=== PATIENT | male | born 1935 | race Caucasian/White ===

== ENCOUNTER 2017-01-06 18:26 | Emergency (ER) | payer MEDICARE, OTHER ==
[~2017-01-06] VITALS: Ht 185.4 cm; Wt 82.6 kg
[~2017-01-06 18:26] MED LIST: ASPI81 PO; ENOX40P SQ; HYDR10TA16 PO; TAB-TAB PO
[2017-01-06 18:30] VITALS: BP 136/71; PULSE 62; RESP 16; TEMP 97.7; O2SAT 96
[2017-01-06] MEDS ORDERED: ASPI1TAB69 PO (18:40)
[2017-01-06] MEDS ORDERED: LEVO25TA4 PO (18:40)
--- NOTE | 2017-01-06 19:23 | PD ---
HPI Chief Complaint: Nosebleed Time Seen by Provider: 19:12 Travel History International Travel<30 days: No Contact w/Intl Traveler<30days: No Traveled to known affect area: No History of Present Illness HPI The patient's 81 years old. He arrives with a history of epistaxis that started about 4 hours and a half prior to ER evaluation. It was from the right nostril only. After about one hour of intermittent pressure he placed paper towel in the right nostril which stopped the bleeding. He noticed initially minimal blood in the posterior oropharynx which resolved. In the ER he states the bleeding has stopped completely. He takes a baby aspirin daily. He notes an occasional similar prior episode. He has follow-up with an oncologist for a history of tongue cancer and underwent a nasopharyngoscopy procedure about 2 months prior. He notes a few drops of blood were observed such that the total blood loss was "infinitesimal" in his words. He has no other complaint. 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) Diminished Hearing: No Thyroid Disease: Yes Past Surgical History Thoracic Surgery: Yes (ATERIOVENOUS MALFORMATION REPAIR 1995) Tonsillectomy: Yes Other Surgery: Yes (avm repair 1995) Social History Alcohol Use: No Tobacco Use: No Substance Use: No Allergies-Medications (Allergen,Severity, Reaction): Coded Allergies: No Known Allergies (Verified , 01/06/17) Reported Meds & Prescriptions Reported Meds & Active Scripts Active Reported Levothyroxine (Levothyroxine Sodium) 25 Mcg Tab Unknown Dose PO DAILY Aspirin 81 Mg Tabdr 81 Mg PO DAILY Review of Systems Except as stated in HPI: all other systems reviewed are Neg General / Constitutional: No: Fever HENT: Positive: Nosebleed Physical Exam Narrative GENERAL: Pleasant 81-year-old male no acute distress SKIN: Warm and dry. HEAD: Atraumatic. Normocephalic. EYES: Pupils equal and round. No scleral icterus. No injection or drainage. ENT: No nasal bleeding or discharge. Mucous membranes pink and moist. There is no bleeding right or left naris. I can see no hyperemic anterior septal arterial plexus on either side. NECK: Trachea midline. No JVD. CARDIOVASCULAR: Regular rate and rhythm. No murmur appreciated. RESPIRATORY: No accessory muscle use. Clear to auscultation. Breath sounds equal bilaterally. GASTROINTESTINAL: Abdomen soft, non-tender, nondistended. Hepatic and splenic margins not palpable. MUSCULOSKELETAL: No obvious deformities. No clubbing. No cyanosis. No edema. NEUROLOGICAL: Awake and alert. No obvious cranial nerve deficits. Motor grossly within normal limits. Normal speech. PSYCHIATRIC: Appropriate mood and affect; insight and judgment normal. Data Data Last Documented VS Vital Signs Date Time Temp Pulse Resp B/P Pulse Ox O2 Delivery O2 Flow Rate FiO2 01/06/17 18:30 97.7 62 16 136/71 96 Vital signs reviewed MDM Medical Decision Making Medical Screen Exam Complete: Yes Emergency Medical Condition: Yes Medical Record Reviewed: Yes Differential Diagnosis Anterior epistaxis, posterior epistaxis, anemia, malignancy Narrative Course The bleeding has resolved and it according to the patient sounds as if it was quite minimal blood loss overall. He has follow-up with physician for his history of tongue cancer and underwent evaluation evidently including a nasopharyngoscopy about 2 months ago. I discussed with patient the possibility that given the atypical nature of his presentation evaluation for malignancy is advised. The patient verbalized understanding at 7:15 PM approximately. Return precautions were discussed as were at home management techniques. Diagnosis Primary Impression: Right-sided epistaxis Referrals: DR CHUA 2 days Additional Instructions: You have a choice when it comes to health care, and we are glad that you chose [email or web address]. Hopefully, we have met your expectations on today's visit. You are welcome to return to [email or web address] at any time, as we are committed to meeting the health care needs of our community. Med/Other Pt SpecificInfo: No Change to Meds Disposition: 01 DISCHARGE HOME Condition: Ernesto Barney MD Jan 06, 2017 19:23
[2017-01-06 19:32] VITALS: BP 123/63; PULSE 66; RESP 18; TEMP 97.4; O2SAT 95
== END 2017-01-06 19:40 | disposition home or self-care (01) ==
LOC: PHED 18:26
DX: R04.0 Epistaxis (principal); I69.351 Hemiplegia and hemiparesis following cerebral infarction affecting right dominant side; Z79.82 Long term (current) use of aspirin
CPT/HCPCS: 99283

== ENCOUNTER 2017-09-06 09:42 | Emergency (ER) | payer MEDICARE, OTHER ==
[~2017-09-06] VITALS: Ht 182.9 cm; Wt 81.4 kg
[~2017-09-06 09:42] MED LIST changes: +ASPI1TAB69 PO; -ASPI81 PO; -ENOX40P SQ; -HYDR10TA16 PO; +LEVO25TA4 PO; -TAB-TAB PO
[2017-09-06 09:54] VITALS: BP 112/57; PULSE 82; RESP 18; TEMP 98.4; O2SAT 96
[2017-09-06] MEDS ORDERED: ASPI81CH6 CHEW (10:04)
--- NOTE | 2017-09-06 10:11 | PD ---
HPI Chief Complaint: Musculoskeletal Complaint Time Seen by Provider: 10:05 Travel History International Travel<30 days: No Contact w/Intl Traveler<30days: No Traveled to known affect area: No History of Present Illness HPI 81-year-old male presents for evaluation of left elbow pain and swelling. He reports that 9 days ago he fell and sustained a laceration to his posterior left elbow. This was repaired with Dermabond at an outside hospital. He reports that yesterday he tripped on the carpet and fell, hitting his left elbow against the ground. He notes swelling to the posterior left elbow. He reports mild pain with palpation of the site. Denies numbness, tingling, range of motion limitation. He is on aspirin, no other anticoagulants. He has no other complaints at this time. 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) Diminished Hearing: No Thyroid Disease: Yes Tetanus Vaccination: > 5 Years Past Surgical History Thoracic Surgery: Yes (ATERIOVENOUS MALFORMATION REPAIR 1995) Tonsillectomy: Yes Other Surgery: Yes (avm repair 1995) Social History Alcohol Use: No Tobacco Use: No Substance Use: No Allergies-Medications (Allergen,Severity, Reaction): Coded Allergies: No Known Allergies (Verified Adverse Reaction, Unknown, 09/06/17) Reported Meds & Prescriptions Reported Meds & Active Scripts Active Reported Aspirin Low Dose (Aspirin) 81 Mg Chew 81 Mg CHEW DAILY Levothyroxine (Levothyroxine Sodium) 25 Mcg Tab Unknown Dose PO DAILY Review of Systems General / Constitutional: No: Fever, Chills Musculoskeletal: Positive: Pain, Other (positive for soft tissue swelling) Physical Exam Narrative GENERAL: Well-developed well-nourished male in no acute distress SKIN: Warm and dry. Well healing laceration posterior left elbow. CARDIOVASCULAR: Regular rate and rhythm. No murmur appreciated. RESPIRATORY: No accessory muscle use. Clear to auscultation. Breath sounds equal bilaterally. MUSCULOSKELETAL: Skin as noted above with olecranon bursal swelling to the posterior left elbow. Mild tenderness to palpation. No erythema. No range of motion limitation. NEUROLOGICAL: Awake and alert. No obvious cranial nerve deficits. Motor grossly within normal limits. Normal speech. Data Data Last Documented VS Vital Signs Date Time Temp Pulse Resp B/P (MAP) Pulse Ox O2 Delivery O2 Flow Rate FiO2 09/06/17 09:54 98.4 82 18 112/57 (75) 96 Orders Orders Elbow, Complete (4 Vws) (09/06/17 ) MDM Medical Decision Making Medical Screen Exam Complete: Yes Emergency Medical Condition: Yes Medical Record Reviewed: Yes Differential Diagnosis Traumatic olecranon bursitis, septic arthritis, elbow fracture Narrative Course Extremities reveals no fracture. Examination is consistent with traumatic olecranon bursitis. Discussed signs and symptoms of a septic bursitis that would warrant returning to the emergency room. He is stable for discharge. Diagnosis Primary Impression: Olecranon bursitis of left elbow Additional Instructions: Ice the affected area several times a day 15 minutes at a time. As discussed, return for severe pain, red-hot swollen elbow, fevers. Med/Other Pt SpecificInfo: No Change to Meds Disposition: 01 DISCHARGE HOME Condition: Stable Mahesh Richardson Sep 06, 2017 10:11
--- NOTE | 2017-09-06 10:42 | RADRPT ---
EXAM DATE/TIME: 09/06/2017 10:19 [facility] COMPARISON: No previous studies available for comparison. INDICATIONS : Left elbow pain and swelling, fell 1 week ago. MEDICAL HISTORY : None. SURGICAL HISTORY : None. ENCOUNTER: Initial ACUITY: 1 week PAIN SCORE: 2/10 LOCATION: Left elbow FINDINGS: 4 views of the left elbow demonstrate no fracture or dislocation. Mineralization is normal. There is focal soft tissue swelling posteriorly. No joint effusion is identified. There is no radiopaque forei gn body. CONCLUSION: Soft tissue swelling posteriorly. No fracture is identified. Db Coulter MD on September 06, 2017 at 10:39 Board Certified Radiologist. This report was verified electronically.
== END 2017-09-06 11:05 | disposition home or self-care (01) ==
LOC: PHEFT 09:42
DX: M70.32 Other bursitis of elbow, left elbow (principal)
CPT/HCPCS: 73080; 99283